=== PATIENT | male | born 1960 | race Caucasian/White ===

== ENCOUNTER 2024-07-24 09:30 | Outpatient (RCR) | payer MEDICARE, SELFPAY ==
--- NOTE | 2024-06-27 12:42 | HP.OTEVAL_ITS ---
Patient's Visit Information Visit Information Visit Information: AZEEM PULIDO is a 63 year old M, referred to Occupational Therapy by IVONNE ALVARENGA, with a diagnosis of lymphedema. Date of Evaluation: 06/27/24 Occupational Therapist: Karla Elaine, ARTURO/Jefry, CHT Subjective Subjective: This 63 years male was seen for OT eval with dx of lymphedema- pt states his initial sx was 2019 after he had his left lung removed and lymph nodes removed ( states 54 of them) states and he had noticed swelling since his sx under his left arm and left side of his body. pt states he feels it rubbing on his left arm and does not like to feeling- with pt states they would like to know what they can do to manage the lymphedema. ROM ROM Comments: pt demo with ROM WNL lymphedema measurements around chest 137cm noted left lateral and scapular region visually large than right- Quick DASH-Disab of Arm,Shoulder& Hand Quick DASH Score: 36.3625 Goals Goal: Patient will demonstrate a 20% reduction in edema by discharge: Yes Goal: Patient will demonstrate adequate knowledge of self-bandaging by the end of the first week.: Yes Goal: Patient will demonstrate adequate knowledge of self-massage by the end of the second week.: Yes Goal: Patient will demonstrate adequate knowledge of skin care and precautions by the end of the first week.: Yes Goal: Patient will demonstrate adequate knowledge of therapeutic exercises by vikash lal.: Yes Goal: Patient will select an appropriate compression garment and demonstrate adequate knowledge of correct donning technique, care and wearing schedule by discharge.: Yes Goal: Patient will voice understanding of need to replace compression garment every four to six months by discharge.: Yes Rehabilitation General Assessment: pt demo with stage II lymphedema. pt demo need of skilled OT services 2-3 visits to ed. pt on life long mtg of lymphedema. Today therapist ed. pt on compression devices to mtg lymphedema- lymph stimulation ex and self manual lymph massage- pt and pts family demo understanding and agree to POC. Rehabilitation Potential: Good Anticipated Interventions Anticipated Interventions: Education re assistive Equipment, Education re Diagnosis, Education re Life-long lymphedema Management, Education re Self- Bandaging Techniques, Education re Skin Care and Precautions, Education re Self Massage Techniques, Education re Correct Donning Tech,Care&Wearing Sched Comp Garments, Caregiver Training and Home Program Visit Plan Frequency: 1-2x /Week Duration: 6 Weeks TEXT: Thank you for the opportunity to evaluate your patient. For Medicare and Medicare HMO plans, please review the plan of care and approve it. It will need to be FAXED BACK to us at [phone] for Medicare purposes. Please let me know if there are questions or concerns regarding this plan of care. Physician Signature: Date:
--- NOTE | 2024-08-07 10:07 | OTREVAL_ITS ---
Re-Evaluation Intro: IVONNE ALVARENGA, It has been my pleasure to treat AZEEM PULIDO over the last 2 visits for lymphedema. Please see the progress note below for an update on the occupational therapy plan of care! Subjective Subjective: pt arrives following 4 weeks of conservative management of left side/chest wall and breast lymphedema. states he does have compression shirt he is wearing but still can feel the thickness and fullness of his chest wall. pt states he also will wrap due to how large his breast and under arm feels. pt not sure the exercises or compression garment is help. Objective Objective/Function: initial chest 137cm circumference current circumference 133cm Abdominal measurements 140cm noticeable fluid pocket lower corner of scapula pt continues to demo with lymphedema at left breast and chest wall radiating in back around lower scapula region despite his conservative attempts at compression wrap/compression shirts/ lymphedema stimulation exercise and self- manual lymphedema massage Plan Plan Frequency: 1-2x /Week Duration: 6 Weeks Visits in this POC: 2-3 visits Plan: Pt has not made significant gains in conservative management of his left side breast and chest wall lymphedema. pt would benefit from home compression pump- flexitouch to assist in increased management of his lymphedema. Goals Goals Goal: Patient will demonstrate a 20% reduction in edema by discharge: Yes Goal: Patient will demonstrate adequate knowledge of self-bandaging by the end of the first week.: Yes Goal: Patient will demonstrate adequate knowledge of self-massage by the end of the second week.: Yes Goal: Patient will demonstrate adequate knowledge of skin care and precautions by the end of the first week.: Yes Goal: Patient will demonstrate adequate knowledge of therapeutic exercises by discharge.: Yes Goal: Patient will select an appropriate compression garment and demonstrate adequate knowledge of correct donning technique, care and wearing schedule by discharge.: Yes Goal: Patient will voice understanding of need to replace compression garment every four to six months by discharge.: Yes Patient Goals: Use Hand/Wrist/Arm Normally Again and Be More Independent in ADLS Anticipated Interventions Anticipated Interventions Anticipated Interventions: Education re assistive Equipment, Education re Diagnosis, Education re Life-long lymphedema Management, Education re Self- Bandaging Techniques, Education re Skin Care and Precautions, Education re Self Massage Techniques, Education re Correct Donning Tech,Care&Wearing Sched Comp Garments, Caregiver Training and Home Program Re-Evaluation Ending Re-evaluation ending: Please do not hesitate to contact me at [phone] by phone or if you have questions or concerns regarding this new plan of care! Sincerely, Karla Elaine, OTR/L, CHT
--- NOTE | 2024-10-25 16:06 | OTREVAL_ITS ---
Re-Evaluation Intro: IVONNE ALVARENGA, It has been my pleasure to treat AZEEM PULIDO over the last 2 visits for lymphedema. Please see the progress note below for an update on the occupational therapy plan of care! Subjective Subjective: pt completed 4 weeks of conservative management (elevation and compression garment use) for left side/chest wall and breast lymphedema. Pe is wearing a compression shirt he is wearing but still can feel the thickness and fullness of his chest wall. pt states he also will wrap due to how large his breast and under arm feels. Objective Objective/Function: initial chest 137cm circumference current circumference 133cm Abdominal measurements 140cm noticeable fluid pocket lower corner of scapula Pt completed 4 weeks of compression and elevation A strong basic pump ruled out due to needing the chest/trunk area treated for lymphedema. A basic pump does not address the area. pt continues to demo with lymphedema at left breast and chest wall radiating in back around lower scapula region despite his conservative attempts at compression wrap/compression shirts/ lymphedema stimulation exercise and self- manual lymphedema massage Plan Plan Plan: Pt has completed over 4 weeks of elevation and compression- he has not made significant gains in conservative management of his left side breast and chest wall lymphedema. pt would benefit from home compression pump- flexitouch to assist in increased management of his lymphedema of his chest/trunk. A basic pump is ruled out as it does not address the chest/trunk area. The most appropriate compression devices is the Flexitouch as it will address pts lymphedema in chest/trunk area. Goals Goals Goal: Patient will demonstrate a 20% reduction in edema by discharge: Yes Goal: Patient will demonstrate adequate knowledge of self-bandaging by the end of the first week.: Yes Goal: Patient will demonstrate adequate knowledge of self-massage by the end of the second week.: Yes Goal: Patient will demonstrate adequate knowledge of skin care and precautions by the end of the first week.: Yes Goal: Patient will demonstrate adequate knowledge of therapeutic exercises by d ischarge.: Yes Goal: Patient will select an appropriate compression garment and demonstrate adequate knowledge of correct donning technique, care and wearing schedule by discharge.: Yes Goal: Patient will voice understanding of need to replace compression garment every four to six months by discharge.: Yes Patient Goals: Use Hand/Wrist/Arm Normally Again and Be More Independent in ADLS Anticipated Interventions Anticipated Interventions Anticipated Interventions: Education re assistive Equipment, Education re Diagnosis, Education re Life-long lymphedema Management, Education re Self- Bandaging Techniques, Education re Skin Care and Precautions, Education re Self Massage Techniques, Education re Correct Donning Tech,Care&Wearing Sched Comp Garments, Caregiver Training and Home Program Re-Evaluation Ending Re-evaluation ending: Please do not hesitate to contact me at [phone] by phone or if you have questions or concerns regarding this new plan of care! Sincerely, Karla Elaine, OTR/L, CHT
--- NOTE | 2024-12-19 13:09 | HP.OTDCNRP_ITS ---
Patient Information Patient Information: AZEEM PULIDO was seen in my office for initial evaluation on 06/27/24. The following Plan of Care was established for this patient: POC Established Initial Frequency: 1-2x /Week Initial Duration: 6 Weeks Plan: Pt has completed over 4 weeks of elevation and compression- he has not made significant gains in conservative management of his left side breast and chest wall lymphedema. pt would benefit from home compression pump- flexitouch to assist in increased management of his lymphedema of his chest/trunk. A basic pump is ruled out as it does not address the chest/trunk area. The most appropriate compression devices is the Flexitouch as it will address pts lymphedema in chest/trunk area. Anticipated Interventions Anticipated Interventions: Education re assistive Equipment, Education re Diagnosis, Education re Life-long lymphedema Management, Education re Self- Bandaging Techniques, Education re Skin Care and Precautions, Education re Self Massage Techniques, Education re Correct Donning Tech,Care&Wearing Sched Comp Garments, Caregiver Training and Home Program Last Seen Last Seen: This patient was last seen in our office 07/24/24. Pertinent comments regarding their Occupational therapy will appear below: pt received his pump to support lymph circulation. No further apts have been scheduled, due to time lapse in service pt is d/c. At this point I will be discontinuing this patient from occupational therapy. I would be happy to see this patient again in the future if found appropriate by the physician. Thank you! Karla Elaine, OTR/L, CHT
== END 2024-07-24 19:00 | disposition home or self-care (01) ==
LOC: OT 09:30
DX: I89.0 Lymphedema, not elsewhere classified (principal)
CPT/HCPCS: 97166; 97530